=== PATIENT | male | born 1965 | race Hispanic/Latino ===

== ENCOUNTER 2024-03-28 07:33 | Emergency (ER) | payer BC ==
[2024-03-28] MEDS ORDERED: Ketorolac Tromethamine 30 MG (1 mL) VIAL ONE (08:38)
[2024-03-28] MEDS ORDERED: Lidocaine 4% Patch ONE (08:42)
== END 2024-03-28 10:04 | disposition home or self-care (01) ==
LOC: ERS 07:33
DX: M54.42 Lumbago with sciatica, left side (principal); E11.9 Type 2 diabetes mellitus without complications; I10 Essential (primary) hypertension; Z79.899 Other long term (current) drug therapy
CPT/HCPCS: 99283; J1885